=== PATIENT | male | born 1980 | race African-American/Black ===

== ENCOUNTER 2021-05-15 11:11 | Observation (INO) | payer MEDICAID, OTHER ==
[~2021-05-15] VITALS: Ht 185.4 cm; Wt 109.5 kg
[2021-05-15 11:56] LABS: BASO % 0.7 % (0.0-1.0); EOS # 0.2 10^3/uL (0.0-0.5); EOS % 2.9 % (0.0-3.0); HEMATOCRIT 36.8 % (42.0-52.0); HEMOGLOBIN 11.5 g/dl (13.5-17.5); LYMPH # 1.8 10^3/uL (1.5-5.0); LYMPH % 29.9 % (24.0-44.0); MEAN CORPUSCULAR HEMOGLOBIN 23.9 pg (27.0-33.0); MEAN CORPUSCULAR HGB CONC 31.3 g/dl (32.0-36.5); MEAN CORPUSCULAR VOLUME 76.3 fl (80.0-96.0); MONO # 0.5 10^3/uL (0.0-0.8); MONO % 8.7 % (2.0-8.0); NEUTROPHILS # 3.4 10^3/uL (1.5-8.5); NEUTROPHILS % 57.5 % (36.0-66.0); PLATELET COUNT, AUTOMATED 414 10^3/uL (150-450); RED BLOOD COUNT 4.82 10^6/uL (4.30-6.10); WHITE BLOOD COUNT 5.9 10^3/uL (4.0-10.0)
--- NOTE | 2021-05-15 13:32 | REP ---
INDICATION: CVA - Nursing interventions must not delay CT. COMPARISON: None. TECHNIQUE: 4.5 mm contiguous transaxial sections were obtained from the skull base to the cerebral convexities with thin cuts through the posterior fossa without the administration of intravenous contrast. FINDINGS: The ventricles and sulci are consistent with the patient's age. There are no extra-axial fluid collections. There is no mass effect. The deep cerebral white matter is consistent with the patient's age. The orbital and petrous structures, cerebellopontine angles, and posterior fossa are unremarkable. The sella turcica, cavernous, and paracavernous structures are essentially unremarkable. The visualized portions of the paranasal sinuses and mastoid air cells are clear. Images of the skull base show no gross abnormality. IMPRESSION: Essentially unremarkable CT examination of the brain. <Electronically signed by Reji Galindo > 05/15/21 [id number]
--- NOTE | 2021-05-15 13:33 | REP ---
INDICATION: CVA. COMPARISON: None. FINDINGS: The technique utilized in obtaining the radiograph has magnified the cardiac silhouette and accentuated the interstitial markings. The superior mediastinal structures are midline. The cardiac silhouette is unremarkable in size, shape, and position. The diaphragmatic surfaces of the lungs are regular, and the costophrenic angles are clear. The pulmonary chanel are clear. The imaged osseous structures are intact. IMPRESSION: There is no acute cardiopulmonary disease. <Electronically signed by Reji Galindo > 05/15/21 [id number]
[2021-05-15 13:39] LABS: CK-MB VALUE MASS 6.2 NG/ML (<3.6); CPK CREATINE PHOSPHOKINASE 888 U/L (39-308); TROPONIN I < 0.02 NG/ML (< 0.10)
[2021-05-15 14:28] LABS: INR 0.98; PROTHROMBIN TIME 13.2 SECONDS (12.5-14.3)
[2021-05-15 14:29] LABS: PARTIAL THROMBOPLASTIN TIME 29.3 SECONDS (24.2-38.5)
--- NOTE | 2021-05-15 14:46 | ECGEPIP ---
[facility] - ED Test Date: 2021-05-15 Pat Name: TRENT PAUL Department: Room: - Gender: Male Alcohol And Drug Counselor: : 1980 Requested By: RAFITA Knight Order Number: [id number] Reading MD: Maribel Wen Measurements Intervals [place] Rate: 64 P: 49 IN: 176 QRS: 10 QRSD: 96 T: 37 QT: 444 QTc: 458 Interpretive Statements Normal sinus rhythm right ventricular conduction delay no prior Electronically Signed on 05-15-2021 14:46:13 EDT by Maribel Wen
[2021-05-15 15:19] LABS: RSV AMPLIFICATION NEGATIVE (NEGATIVE)
[2021-05-15] MEDS ORDERED: ACETAMINOPHEN TAB 650MG DOSE (2X325MG) PO PRN (15:25)
--- NOTE | 2021-05-15 15:25 | HPEPDOC ---
[facility] Medical History & Physical Date of Admission May 15, 2021 Date of Service: May 15, 2021 History and Physical CHIEF COMPLAINT: Finger tingling HISTORY OF PRESENT ILLNESS: 41M no past medical history comes to the emergency department because he woke up last night feeling tingling in his fourth and fifth digits of his right hand which lasted for several hours and then resolved spontaneously. Patient believes he slept on his right arm and a strange angle. Hospitalist service was contacted by Dr. Erickson in the emergency department requested admission to rule out stroke vs TIA in this previously healthy 41-year-old male who presented with transient right hand tingling in the distribution of the ulnar nerve. I asked Dr. Erickson to discuss with neurology who suggested a brain MRI to definitively rule out stroke and if negative no further workup is necessary. Patient will be admitted for observation to obtain brain MRI. Patient is feeling well. No symptoms denies any chest pain, shortness of breath, weakness in any extremity or numbness. Patient describes the tingling to be in the exact distribution of the ulnar nerve on the right hand. Of note patient endorses that before going to bed last night he felt very hot in his apartment because of lack of AC or fan and had to go sleep at a friends house because he felt he was having a heat stroke. PAST MEDICAL/SURGICAL HISTORY: Denies previous medical problems Endorses history of left ankle surgery SOCIAL HISTORY: Endorses drinking alcohol 4 tall beers daily Endorses smoking half a pack of tobacco daily for the past 20 years Denies illicit drug use other than cannabis use FAMILY HISTORY: Denies knowing any medical problems in his immediate family including strokes or heart attacks. ALLERGIES: Please see below. REVIEW OF SYSTEMS: 10 point review of systems complete all negative otherwise stated in HPI HOME MEDICATIONS: Please see below. PHYSICAL EXAMINATION: Constitutional: Awake and alert, in no apparent distress ENT: Sclera are clear. Mucosa is moist. Respiratory: Lungs CTA bilaterally. No respiratory distress. No use of access ory muscles. Cardiovascular: RRR S1 and S2 are normal, no murmur Gastrointestinal: Abdomen is soft, non distended, non tender, BS present. Musculoskeletal: No lower extremity edema. mental status: The patient is awake, alert, oriented to name, location, and date. Cranial nerves: Pupils are equal, round, and reactive to light. Extraocular muscles intact. Visual chanel full bilaterally. Smile is symmetrical. Tongue is midline. Intact sensation on both sides of face. Motor: At least 4+/5 in both upper and lower extremities without any drifting. Sensory: Intact to sensation bilaterally. Reflexes: Symmetrical, non-hyperreflexic. Not pathological. Coordination: Ezffbs-yy-yywa grossly intact. LABORATORY DATA: See below. IMAGING: See chart MICROBIOLOGY: Please see below. ASSESSMENT/PLAN # Right arm tingling: Likely triggered by ulnar nerve compression while sleeping resolved spontaneously after waking up. Per recommendations from neurology will obtain MRI to rule out stroke. If negative no further workup and can follow up with his PCP. # Elevated blood pressure without diagnosis of hypertension: started lisinopril. Needs to follow up with PCP. Lifestyle modifications. # Elevated CPK: possible heat stroke from last evening. Trend CPK. Trend trops. IVFs. # Alcohol abuse: drinks daily. CIWA protocol. Thiamine, MVN, folate. Ativan PRN. # DVT prophylaxis: Lovenox A Yousef Hospitalist Vital Signs Vital Signs Date Time Temp Pulse Resp B/P (MAP) Pulse Ox O2 Delivery O2 Flow Rate FiO2 05/15/21 11:59 05/15/21 11:11 97.2 100 24 100 Room Air Laboratory Data Labs 24H Laboratory Tests 2 05/15/21 11:35: Immature Granulocyte % (Auto) 0.3, Neutrophils (%) (Auto) 57.5, Lymphocytes (%) (Auto) 29.9, Monocytes (%) (Auto) 8.7H, Eosinophils (%) (Auto) 2.9, Basophils (%) (Auto) 0.7, Neutrophils # (Auto) 3.4, Lymphocytes # (Auto) 1.8, Monocytes # (Auto) 0.5, Eosinophils # (Auto) 0.2, Basophils # (Auto) 0.0, Nucleated Red Blood Cells % (auto) 0.0, Total Creatine Kinase 888H, Creatine Kinase MB 6.2H, Creatine Kinase MB Relative Index 0.70, Troponin I < 0.02 05/15/21 11:52: POC Glucose (Misc Panel) 124H, POC Sodium (Misc Panel) 141, POC Potassium (Misc Panel) 3.9, POC Chloride (Misc Panel) 104, POC Total CO2 (Misc Panel) 24.0, POC Blood Urea Nitrogen (Misc Panel 17, POC Ionized Calcium (Misc Panel) 5.0, POC Creatinine (Misc Panel) 1.2, POC Hematocrit (Misc Panel) 39.0 05/15/21 14:05: Prothrombin Time 13.2, Prothromb Time International Ratio 0.98, Activated Partial Thromboplast Time 29.3 CBC/BMP Laboratory Tests 05/15/21 11:35 Home Medications No Active Prescriptions or Reported Meds Allergies Coded Allergies: No Known Allergies (Unverified , 05/15/21) A-FIB/CHADSVASC A-FIB History Current/History of A-Fib/PAF?: No JIMMIESECHING Guzman MD May 15, 2021 15:25
[2021-05-15] MEDS ORDERED: LORazepam 2 MG TAB PO PRN (16:40)
[2021-05-15] MEDS: THIAMINE 100 MG TAB PO SCH (17:00)
[2021-05-15 17:27] VITALS: BP 165/94
[2021-05-15 17:28] VITALS: BP 165/94
[2021-05-15] MEDS: FOLIC ACID 1 MG TAB PO SCH (18:04)
[2021-05-15] MEDS: MULTIVITAMINS/MINERALS THERAP 1 TAB PO SCH (18:04)
[2021-05-15] MEDS: NS 1,000 ML IV SCH (18:26)
--- NOTE | 2021-05-15 19:31 | REPVR ---
PROCEDURE INFORMATION: Exam: MRA Head Without Contrast; Arteriography Exam date and time: 05/15/2021 4:39 PM Age: 41 years old Clinical indication: Headache and numbness and visual disturbance and weakness; Other visual defect; Patient HX: PT states he became hot due to the outside temperature and then had hallucinations and RT arm numbness and tingling sensation. PT states he still has a headache and arm symptoms have resolved; Additional info: Rule out stroke TECHNIQUE: Imaging protocol: Magnetic resonance angiography head without contrast. Exam focused on the arteries. COMPARISON: CT Head without contrast 05/15/2021 1:16 PM FINDINGS: ANTERIOR CIRCULATION: Right internal carotid artery: Intracranial segment is patent with no significant stenosis. No aneurysm. Right middle cerebral artery: No occlusion or significant stenosis. No aneurysm. Right anterior cerebral artery: No occlusion or significant stenosis. No aneurysm. Left internal carotid artery: Intracranial segment is patent with no significant stenosis. No aneurysm. Left middle cerebral artery: No occlusion or significant stenosis. No aneurysm. Left anterior cerebral artery: No occlusion or significant stenosis. No aneurysm. POSTERIOR CIRCULATION: Right vertebral artery: No occlusion or significant stenosis. No aneurysm. Left vertebral artery: No occlusion or significant stenosis. No aneurysm. Basilar artery: No occlusion or significant stenosis. No aneurysm. Right posterior cerebral artery: No occlusion or significant stenosis. No aneurysm. Left posterior cerebral artery: No occlusion or significant stenosis. No aneurysm. IMPRESSION: No significant arterial stenosis or occlusion on this MRA head. Electronically signed by: Maico Purcell On 05/15/2021 19:31:10 PM
--- NOTE | 2021-05-15 21:13 | REPVR ---
PROCEDURE INFORMATION: Exam: US Duplex Right Upper Extremity Veins, Limited Exam date and time: 05/15/2021 8:44 PM Age: 41 years old Clinical indication: Pain; Arm, upper; Right; Additional info: Right arm numbness and tingling, pain and edema TECHNIQUE: Imaging protocol: Real-time Duplex ultrasound of the Right Upper Extremity with 2-D zarate scale, color Doppler flow and spectral waveform analysis with image documentation. Limited exam focused on the right upper extremity veins. COMPARISON: No relevant prior studies available. FINDINGS: Right deep veins: Axillary and brachial veins are patent throughout without thrombus. Normal Doppler waveforms. Normal compressibility and/or augmentation response. Visualized internal jugular and subclavian veins are patent. Right superficial veins: Visualized cephalic and basilic veins are patent without thrombus. Soft tissues: Unremarkable. IMPRESSION: No evidence of deep vein thrombosis of the right upper extremity, as visualized. Electronically signed by: Maico Purcell On 05/15/2021 21:13:13 PM
[2021-05-15 22:00] VITALS: BP 156/93
[2021-05-16] MEDS: NS 1,000 ML IV SCH (01:03)
[2021-05-16 06:00] VITALS: BP 125/66
[2021-05-16 07:55] LABS: HEMATOCRIT 39.2 % (42.0-52.0); MEAN CORPUSCULAR HEMOGLOBIN 23.7 pg (27.0-33.0); MEAN CORPUSCULAR HGB CONC 30.6 g/dl (32.0-36.5); MEAN CORPUSCULAR VOLUME 77.3 fl (80.0-96.0); PLATELET COUNT, AUTOMATED 446 10^3/uL (150-450); RED BLOOD COUNT 5.07 10^6/uL (4.30-6.10); WHITE BLOOD COUNT 5.2 10^3/uL (4.0-10.0)
[2021-05-16 08:07] VITALS: BP 154/92
[2021-05-16] MEDS: MULTIVITAMINS/MINERALS THERAP 1 TAB PO SCH (08:07)
[2021-05-16] MEDS: THIAMINE 100 MG TAB PO SCH (08:07)
[2021-05-16] MEDS: FOLIC ACID 1 MG TAB PO SCH (08:07)
[2021-05-16 08:15] LABS: BLOOD UREA NITROGEN 13 MG/DL (7-18); CALCIUM LEVEL 8.7 MG/DL (8.5-10.1); CARBON DIOXIDE LEVEL 29 MEQ/L (21-32); CHLORIDE LEVEL 108 MEQ/L (98-107); CPK CREATINE PHOSPHOKINASE 488 U/L (39-308); CREATININE FOR GFR 0.94 MG/DL (0.70-1.30); GLOMERULAR FILTRATION RATE > 60.0 (>60); GLUCOSE, FASTING 118 MG/DL (70-100); POTASSIUM SERUM 3.8 MEQ/L (3.5-5.1); SODIUM LEVEL 138 MEQ/L (136-145)
[2021-05-16] MEDS ORDERED: ENOXAPARIN 40MG/0.4ML SYRINGE (J1650 PER 10MG) SC SCH (09:00)
--- NOTE | 2021-05-16 11:01 | IPNPDOC ---
Text Note Date of Service The patient was seen on 05/16/21. NOTE Subjective: Patient seen and examined this morning at bedside. Tells me all his symptoms completely resolved he has no more tingling in his right hand ulnar fingertips patient. Wants to go home. Note given for work to return to work. No acute overnight events reported to me. MRI negative for stroke discussed with patient. Denies any chest pain or shortness of breath. Denies fever or chills. nurse called me last night she was concerned that he recently received Covid vaccine and she felt his right upper extremity was slightly more swollen than the left upper extremity and as avoiding getting ultrasound. I had not noticed any swelling on my exam but agreed to an abundance of caution in case he developed swelling after left. His ultrasound was negative. Examined his ex tremities this morning and there was no increased swelling on the right side. Objective: Constitutional: Awake and alert, in no apparent distress ENT: Sclera are clear. Mucosa is moist. Respiratory: Lungs CTA bilaterally. No respiratory distress. No use of accessory muscles. Cardiovascular: RRR S1 and S2 are normal, no murmur Gastrointestinal: Abdomen is soft, non distended, non tender, BS present. Musculoskeletal: No lower extremity edema. mental status: The patient is awake, alert, oriented to name, location, and date. Cranial nerves: Pupils are equal, round, and reactive to light. Extraocular muscles intact. Visual chanel full bilaterally. Smile is symmetrical. Tongue is midline. Intact sensation on both sides of face. Motor: At least 4+/5 in both upper and lower extremities without any drifting. Sensory: Intact to sensation bilaterally. Reflexes: Symmetrical, non-hyperreflexic. Not pathological. Coordination: Wadrur-tp-ilsu grossly intact. Assessment/plan: # Right arm tingling: Resolved, has not reoccurred. Likely triggered by ulnar nerve compression while sleeping resolved spontaneously after waking up. Per recommendations from neurology will obtain MRI which came back as negative for stroke. can follow up with his PCP. # Elevated blood pressure without diagnosis of hypertension: started lisinopril but his BP normalized in the morning to 125/66, no need for medications on discharge. Could be triggered by stress or white coat htn. Needs to follow up w ith PCP. Lifestyle modifications. # Elevated CPK: possible heat stroke from last evening. Trend CPK downtrended 488 on discharge. Trend trops negative 3x. IVFs. # Alcohol abuse: drinks daily. CIWA protocol. Thiamine, MVN, folate. Ativan PRN. # DVT prophylaxis: Lovenox A Molly Hospitalist VSDavid, I+O VSDavid, I+O Laboratory Tests 05/15/21 11:35 05/16/21 07:30 Vital Signs Date Time Temp Pulse Resp B/P (MAP) Pulse Ox O2 Delivery O2 Flow Rate FiO2 05/16/21 08:07 154/92 05/16/21 06:00 76 05/16/21 06:00 97.7 20 100 Room Air I&O- Last 24 Hours up to 6 AM 05/16/21 06:00 Intake Total 1485 ml Balance 1485 ml CHING ADKINS MD May 16, 2021 11:01
== END 2021-05-16 12:20 | disposition home or self-care (01) ==
LOC: M ED 11:11 → M ED INP 11:12 → ENRESERV 15:46 → M MSPAV 17:21
PROVIDERS: ADMIT Family Medicine; ATTEND Family Medicine
DX: R20.2 Paresthesia of skin (principal); R03.0 Elevated blood-pressure reading, without diagnosis of hypertension; R74.8 Abnormal levels of other serum enzymes; R51.9 Headache, unspecified; M79.641 Pain in right hand; F10.10 Alcohol abuse, uncomplicated; F17.210 Nicotine dependence, cigarettes, uncomplicated

== ENCOUNTER 2021-07-04 10:49 | Emergency (ER) | payer OTHER ==
[~2021-07-04] VITALS: Ht 185.4 cm; Wt 106.3 kg
[2021-07-04 10:49] VITALS: BP 148/76
--- NOTE | 2021-07-04 13:35 | REP ---
INDICATION: mass under left mandible ? abscess. COMPARISON: None. TECHNIQUE: Multiple ultrasonographic images inferior to the mandible on the left with financial foundations representative images inferior to the mandible on the right, including color Doppler ultrasound. FINDINGS: There is a palpable mass inferior to the mandible on the left. Ultrasonography of this mass identifies a subcutaneous ovoid, sharply circumscribed solid mass, nonpainful, measuring 3.4 x 2.9 x 1.3 cm. Diversional Therapist images inferior to the mandible on the right identify a smaller similar appearing solid nodule measuring 0.3 x 0.4 x 0.4 cm. Color Doppler assessment of both lesions identifies no internal vascular flow. IMPRESSION: There is a non tender sharply circumscribed solid mass inferior to the mandible on the left corresponding the palpable lump with no visible internal flow by color Doppler assessment. There is a similar appearing but much smaller mass inferior to the mandible on the right. These are nonspecific, some diagnostic considerations are epidermoid cyst and sebaceous cyst. I would recommend MRI for follow-up imaging. <Electronically signed by Reggie Rawls > 07/04/21 0911
== END 2021-07-04 13:57 | disposition left against medical advice (07) ==
LOC: M ED 10:49
DX: R22.0 Localized swelling, mass and lump, head (principal); I10 Essential (primary) hypertension; J45.909 Unspecified asthma, uncomplicated; F17.210 Nicotine dependence, cigarettes, uncomplicated; F12.20 Cannabis dependence, uncomplicated

== ENCOUNTER 2021-07-10 10:56 | Emergency (ER) | payer OTHER ==
[~2021-07-10] VITALS: Ht 185.4 cm; Wt 108.7 kg
[2021-07-10] MEDS ORDERED: IBUP-1022 PO (12:53)
[2021-07-10] MEDS ORDERED: CYCL5TAB PO (12:53)
[2021-07-10 13:17] VITALS: BP 158/80
== END 2021-07-10 13:21 | disposition home or self-care (01) ==
LOC: M ED 10:56
DX: G89.29 Other chronic pain (principal); M54.5 Low back pain; D37.032 Neoplasm of uncertain behavior of the submandibular salivary glands; I10 Essential (primary) hypertension; J45.909 Unspecified asthma, uncomplicated; F17.210 Nicotine dependence, cigarettes, uncomplicated

== ENCOUNTER 2021-08-20 09:08 | Emergency (ER) | payer MEDICAID, OTHER ==
[~2021-08-20] VITALS: Ht 185.4 cm; Wt 103.6 kg
[~2021-08-20 09:08] MED LIST: CYCL5TAB PO; IBUP-1022 PO
[2021-08-20 10:00] VITALS: BP 146/73
--- NOTE | 2021-08-20 11:09 | REP ---
INDICATION: cough. COMPARISON: Portable chest, 05/15/2021. TECHNIQUE: Upright PA and lateral chest images were obtained. FINDINGS: There is a benign calcified granuloma in the lower lung zone on the right. The lungs are otherwise clear. There is no lobar consolidation or pleural effusion. The heart borders mediastinum and pulmonary vascular pattern normal. The upper abdominal bowel gas pattern is normal. There are no bony abnormalities of chest. IMPRESSION: No evidence of acute cardiopulmonary pathology. <Electronically signed by Maico Wang > 08/20/21 2552
--- NOTE | 2021-08-21 08:18 | ECGEPIP ---
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
== END 2021-08-20 11:39 | disposition home or self-care (01) ==
LOC: M ED 09:08 → EDBD 09:08 → M ED 11:39
DX: J06.9 Acute upper respiratory infection, unspecified (principal); J45.909 Unspecified asthma, uncomplicated

== ENCOUNTER 2021-09-27 11:29 | Emergency (ER) | payer OTHER ==
[~2021-09-27] VITALS: Ht 188 cm; Wt 110.4 kg
[2021-09-27 11:30] VITALS: BP 143/74
--- OUTSIDE RECORDS SUMMARY | 2021-09-27 11:36 | CCD ---
Author Author [facility] Organization [facility] Address Unknown Phone Unavailable Care Team Providers Care Blending Tank Helper Name Role Phone HUA CLAYTON MD Unavailable Unavailable HUA CLAYTON MD Unavailable Unavailable HUA CLAYTON MD Unavailable Unavailable HUA CLAYTON MD Unavailable Unavailable HUA CLAYTON MD Unavailable Unavailable HUA CLAYTON MD Unavailable Unavailable HUA CLAYTON MD Unavailable Unavailable Re-disclosure Warning The records that you are about to access may contain information from federally-assisted alcohol or drug abuse programs. If such information is present, then the following federally mandated warning applies: This information has been disclosed to you from records protected by federal confidentiality rules (42 CFR part 2). The federal rules prohibit you from making any further disclosure of this information unless further disclosure is expressly permitted by the written consent of the person to whom it pertains or as otherwise permitted by 42 CFR part 2. A general authorization for the release of medical or other information is NOT sufficient for this purpose. The Federal rules restrict any use of the information to criminally investigate or prosecute any alcohol or drug abuse patient.The records that you are about to access may contain highly sensitive health information, the redisclosure of which is protected by Article 27-F of the [facility] Public Health law. If you continue you may have access to information: Regarding HIV / AIDS; Provided by facilities licensed or operated by the [facility] Office of Mental Health; or Provided by the [facility] Office for People With Developmental Disabilities. If such information is present, then the following [facility] mandated warning applies: This information has been disclosed to you from confidential records which are protected by state law. State law prohibits you from making any further disclosure of this information without the specific written consent of the person to whom it pertains, or as otherwise permitted by law. Any unauthorized further disclosure in violation of state law may result in a fine or intermediate sentence or both. A general authorization for the release of medical or other information is NOT sufficient authorization for further disc losure. Encounters Encounter Providers Location Date Indications Data Source(s ) Emergency Attender: HUA CLYATON MD [facility] 2016 09:31:00 AM EDT - 08/14/2017 11:05:00 AM EDT [facility] Medications No Information Insurance Providers Payer name Policy type / Coverage type Policy ID Covered alliance party ID Covered alliance party's relationship to [place] Policy [place] Plan Information [facility] MCDO [id number] SP [id number] [facility] MEDICAID [id number] SP [id number] J [facility] [employer] MCDO [id number] SP [id number] [facility] MCDO [id number] SP [id number] [facility] MEDICAID [id number] SP [id number] [facility] [employer] MCDO [id number] SP [id number] MEDICAID [id number] S [id number] SELF-PAY [id number] S [id number] SELF-PAY UNAVAILABLE S UNAVAILA BLE Problems, Conditions, and Diagnoses No Information Surgeries/Procedures No Information Results ID Date Data Source [id number] 08/20/2021 09:17:00 AM EDT [facility] Name Value Range Interpretation Code Description Data Mallory rce(s) Supporting Document(s) SARS COVID ANTIGEN NEGATIVE [facility] This lab was ordered by [facility] a nd reported by [facility]. ID Date Data Source [id number] 05/15/2021 02:05:00 PM EDT [facility] Name Value Range Interpretation Code Description Data Mallory rce(s) Supporting Document(s) SARS coronavirus 2 RNA [Presence] in Res piratory specimen by SUNITHA with probe detection NEGATIVE [facility] This lab was ordered by [facility] a nd reported by [facility]. Procedure Social History No Information
--- OUTSIDE RECORDS SUMMARY | 2021-09-27 13:19 | CCD ---
Author Author [facility] Organization [facility] Address Unknown Phone Unavailable Care Team Providers Care Director Reactor Projects Name Role Phone HUA CLAYTON MD Unavailable [...] is protected by Article 27-F of the [facility] Public Health law. If you continue you may have access to information: Regarding HIV / AIDS; Provided by facilities licensed or operated by the [facility] Office of Mental Health; or Provided by the [facility] Office for People With Developmental Disabilities. If such information is present, then the following [facility] mandated warning applies: This information has been [...] law may result in a fine or penitentiary sentence or both. A general authorization for the release of medical or other information is NOT sufficient authorization for further disc losure. Encounters Encounter Providers Location Date Indications Data Source(s ) Emergency Attender: HUA CLAYTON MD [facility] 2016 09:31:00 AM EDT - 08/14/2017 11:05:00 AM EDT [facility] Medications No Information Insurance Providers Payer name Policy type / Coverage type Policy ID Covered alliance party ID Covered alliance party's relationship to [place] Policy [place] Plan Information [facility] COMMUNITY PLAN MCDO [id number] SP [id number] [facility] MEDICAID [id number] SP [id number] J [facility] COMMUNITY PLAN MCDO [id number] SP [id number] [facility] COMMUN[facility] PLAN MCDHMO [id number] SP [id number] [facility] MEDICAID [id number] SP [id number] [facility] COMMUNITY PLAN MCDO [id number] SP [id number] MEDICAID [id number] S [id number] SELF-PAY [id number] S [id number] SELF-PAY UNAVAILABLE S UNAVAILA BLE Problems, Conditions, and Diagnoses No Information Surgeries/Procedures No Information Results ID Date Data Source [id number] 08/20/2021 09:17:00 AM EDT [facility] Name Value Range Interpretation Code Description Data Mallory rce(s) Supporting Document(s) SARS COVID ANTIGEN NEGATIVE [facility] This lab was ordered by [facility] a nd reported by [facility]. ID Date Data Source [id number] 05/15/2021 02:05:00 PM EDT [facility] Name Value Range Interpretation Code Description Data Mallory rce(s) Supporting Document(s) SARS coronavirus 2 RNA [Presence] in Res piratory specimen by SUNITHA with probe detection NEGATIVE [facility] This lab was ordered by [facility] a nd reported by [facility]. Procedure Social History No Information
== END 2021-09-27 15:19 | disposition left against medical advice (07) ==
LOC: M ED 11:29
DX: R21 Rash and other nonspecific skin eruption (principal); F17.210 Nicotine dependence, cigarettes, uncomplicated; F12.20 Cannabis dependence, uncomplicated

== ENCOUNTER 2021-09-27 16:56 | Inpatient (IN) | payer OTHER ==
[~2021-09-27] VITALS: Ht 185.4 cm; Wt 113.7 kg
--- OUTSIDE RECORDS SUMMARY | 2021-09-27 17:01 | CCD ---
Author Author [facility] Organization [facility] Address Unknown Phone Unavailable Care Team Providers Care Locksmith Helper Name Role Phone HUA CLAYTON MD [...] is protected by Article 27-F of the [facility] Public Health law. If you continue you may have access to information: Regarding HIV / AIDS; Provided by facilities licensed or operated by the [facility] Office of Mental Health; or Provided by the [facility] Office for People With Developmental Disabilities. If such information is present, then the following [facility] mandated warning applies: This information has been [...] law may result in a fine or longterm sentence or both. A general authorization for the release of medical or other information is NOT sufficient authorization for further disc losure. Encounters Encounter Providers Location Date Indications Data Source(s ) Emergency Attender: HUA CLAYTON MD CPSCAORT-ED 2016 09:31:00 AM EDT - 08/14/2017 11:05:00 AM EDT [facility] Medications No Information Insurance Providers Payer name Policy type / Coverage type Policy ID Covered green party ID Covered green party's relationship to [place] Policy [place] Plan Information [facility] COMMUNITY PLAN MCDO [id number] SP [id number] [facility] MEDICAID [id number] SP [id number] J [facility] COMMUNITY PLAN MCDO [id number] SP [id number] [facility] COMMUNITY PLAN MCDHMO [id number] SP [id number] [facility] MEDICAID [id number] SP [id number] 10 [facility] COMMUNITY PLAN MCDO [id number] SP [id number] MEDICAID [id number] S [id number] SELF-PAY [id number] S [id number] SELF-PAY UNAVAILABLE S UNAVAILA BLE Problems, Conditions, and Diagnoses No Information Surgeries/Procedures No Information Results ID Date Data Source [id number] 08/20/2021 09:17:00 AM EDT [facility] Name Value Range Interpretation Code Description Data Mallory rce(s) Supporting Document(s) SARS COVID ANTIGEN NEGATIVE [facility] This lab was ordered by [facility] a nd reported by [facility]. ID Date Data Source [id number] 05/15/2021 02:05:00 PM EDT [facility] Name Value Range Interpretation Code Description Data Mallory rce(s) Supporting Document(s) SARS coronavirus 2 RNA [Presence] in Res piratory specimen by SUNITHA with probe detection NEGATIVE [facility] This lab was ordered by [facility] a nd reported by [facility]. Procedure Social History No Information
[2021-09-27 21:38] LABS: BASO # 0.1 10^3/uL (0.0-0.2); BASO % 0.5 % (0.0-1.0); EOS # 0.2 10^3/uL (0.0-0.5); EOS % 1.8 % (0.0-3.0); HEMATOCRIT 35.7 % (42.0-52.0); LYMPH # 1.8 10^3/uL (1.5-5.0); LYMPH % 17.5 % (24.0-44.0); MEAN CORPUSCULAR HEMOGLOBIN 23.1 pg (27.0-33.0); MEAN CORPUSCULAR HGB CONC 30.8 g/dl (32.0-36.5); MEAN CORPUSCULAR VOLUME 74.8 fl (80.0-96.0); MONO # 0.9 10^3/uL (0.0-0.8); MONO % 8.8 % (2.0-8.0); NEUTROPHILS # 7.4 10^3/uL (1.5-8.5); NEUTROPHILS % 70.9 % (36.0-66.0); PLATELET COUNT, AUTOMATED 439 10^3/uL (150-450); RED BLOOD COUNT 4.77 10^6/uL (4.30-6.10); WHITE BLOOD COUNT 10.4 10^3/uL (4.0-10.0)
[2021-09-27] MEDS ORDERED: ISOVUE-370 76% 100ML VIAL As Ordered ONE (21:39)
--- OUTSIDE RECORDS SUMMARY | 2021-09-27 22:35 | CCD ---
Author Author [facility] Organization [facility] Address Unknown Phone Unavailable Care Team Providers Care Call Center Agent Name Role Phone HUA CLAYTON MD Unavailable [...] is protected by Article 27-F of the [place] Public Health law. If you continue you may have access to information: Regarding HIV / AIDS; Provided by facilities licensed or operated by the [facility] Office of Mental Health; or Provided by the [facility] Office for People With Developmental Disabilities. If such information is present, then the following [facility] mandated warning applies: This information has [...] law may result in a fine or nursing home sentence or both. A general authorization for the release of medical or other information is NOT sufficient authorization for further disc losure. Encounters Encounter Providers Location Date Indications Data Source(s ) Emergency Attender: HUA CLAYTON MD [facility]PSCAORT-ED 2016 09:31:00 AM EDT - 08/14/2017 11:05:00 AM EDT [facility] Medications No Information Insurance Providers Payer name Policy type / Coverage type Policy ID Covered alliance party ID Covered alliance party's relationship to [place] Policy [place] Plan Information [facility] COMMUNITY PLAN MCDO [id number] SP [id number] [facility] MEDICAID [id number] SP [id number] J [facility] COMMUNITY PLAN MCDO [id number] SP [id number] [facility] COMMUNITY PLAN MCDO [id number] SP [id number] [facility] MEDICAID [id number] SP [id number] [facility] COMMUNITY PLAN MCDO [id number] SP [id number] MEDICAID [id number] S [id number] SELF-PAY [id number] S [id number] SELF-PAY UNAVAILABLE S UNAVAILA BLE Problems, Conditions, and Diagnoses No Information Surgeries/Procedures No Information Results ID Date Data Source [id number] 08/20/2021 09:17:00 AM EDT [facility] Name Value Range Interpretation Code Description Data Mallory rce(s) Supporting Document(s) SARS COVID ANTIGEN NEGATIVE [facility] This lab was ordered by [facility] a nd reported by [facility]. ID Date Data Source [id number] 05/15/2021 02:05:00 PM EDT [facility] Name Value Range Interpretation Code Description Data Mallory rce(s) Supporting Document(s) SARS coronavirus 2 RNA [Presence] in Res piratory specimen by SUNITHA with probe detection NEGATIVE [facility] This lab was ordered by [facility] a nd reported by [facility]. Procedure Social History No Information
[2021-09-27] MEDS ORDERED: AMPICILLIN SOD/SULBACTAM SOD 3 GM in D5W MINI-BAG PLUS 100 ML IV ONE (23:00)
--- NOTE | 2021-09-27 23:05 | REPVR ---
PROCEDURE INFORMATION: Exam: CT Neck With Contrast Exam date and time: 09/27/2021 10:18 PM Age: 41 years old Clinical indication: Mass, lump, or swelling in neck; Right; Additional info: Fluctuant mass at the level of the ear (right side) TECHNIQUE: Imaging protocol: Computed tomography images of the neck with contrast. Radiation optimization: All CT scans at this facility use at least one of these dose optimization techniques: automated exposure control; mA and/or kV adjustment per patient size (includes targeted exams where dose is matched to clinical indication); or iterative reconstruction. Contrast material: ISOVUE 370; Contrast volume: 75 ml; Contrast route: INTRAVENOUS (IV); COMPARISON: 1. Thyroid, ST head+neck US 07/04/2021 12:[address] Head without contrast 05/15/2021 1:16:25 PM FINDINGS: Orbital cavity: The globes are intact and normal in appearance. Mastoid air cells: The mastoid air cells are well aerated. Auditory system: The middle ear spaces are clear. Paranasal sinuses: The imaged portions of the sinuses are well aerated. No air-fluid levels are noted in the sinuses. Nasal cavity: Unremarkable. Nasopharynx: Unremarkable. Oral Cavity: Unremarkable. Dental: There are dental caries involving the left upper 3rd molar. Oropharynx: Unremarkable. No enlargement of the palatine tonsils. No tonsillar or peritonsillar abscess. Hypopharynx: Unremarkable. Larynx: Unremarkable. No swelling of the epiglottis. No mass. Retropharyngeal space: Unremarkable. No retropharyngeal edema or fluid collection. Submandibular/Parotid glands: Unremarkable. Thyroid: There is a 1.5 cm heterogeneous nodule in the posterior aspect of the lower pole of the left lobe of the thyroid gland (image 64 of the axial series 201 and image 45 of the coronal series 202). Lymph nodes: No enlarged lymph nodes. Trachea: Normal as visualized. The lower trachea was not fully imaged. Lungs: The imaged lung apices are clear. The lungs were not fully imaged. Bones/joints: There is no fracture or dislocation. No suspicious osteolytic or osteoblastic lesion. There are no bony destructive changes. Vasculature: The carotid arteries and jugular veins are patent. Soft tissues: There is a 1.4 cm x 2.1 cm x 1.7 cm rim enhancing fluid collection in the subcutaneous tissues lateral to the right side of the jaw with surrounding soft tissue edema and overlying thickening of the skin (image 27 of the axial series 201 and image 30 of the coronal series 202). There are several smaller cystic lesions in the skin along both sides of the face measuring up to 8 mm with surrounding soft tissue edema (images 16, 23, and 26 of the axial series 201). There is a 2.5 cm x 3 cm x 2.5 cm oval-shaped cystic lesion in the subcutaneous tissues in the left submandibular region (image 45 of the axial series 201). IMPRESSION: 1. 1.4 cm x 2.1 cm x 1.7 cm rim enhancing fluid collection in the subcutaneous tissues lateral to the right side of the jaw with surrounding soft tissue edema and overlying thickening of the skin, which may represent an abscess with surrounding cellulitis. 2. Several smaller cystic lesions in the skin along both sides of the face measuring up to 8 mm with surrounding soft tissue edema, which may also represent abscesses. 3. 2.5 cm x 3 cm x 2.5 cm oval-shaped cystic lesion in the subcutaneous tissues in the left submandibular region. 4. 1.5 cm heterogeneous nodule in the posterior aspect of the lower pole of the left lobe of the thyroid gland. See management guidelines below. 5. Dental caries involving the left upper 3rd molar. COMMENTS: Consistent with the [place] [employer]'s Incidental Findings Committee white paper (J Am Krystal Radiol 2015): In patients aged 35 years and older with an incidental thyroid nodule equal to or greater than 1.[address], MRI or extrathyroidal US, further evaluation with dedicated thyroid US is recommended for patients with normal life expectancy and without comorbidities. For smaller nodules without suspicious features, no further evaluation or follow up is recommended. Electronically signed by: Dieudonne Bowen On 09/27/2021 23:05:15 PM
[2021-09-27] MEDS ORDERED: HOME MED LIST COMPLETE! XX SCH (23:20)
[2021-09-27] MEDS ORDERED: MOM 30ML SUSPENSION UDC PO PRN (23:25)
--- NOTE | 2021-09-27 23:27 | HPEPDOC ---
[facility] Medical History & Physical Date of Admission Sep 27, 2021 Date of Service: Sep 27, 2021 History and Physical CHIEF COMPLAINT: Facial swelling HISTORY OF PRESENT ILLNESS: 41-year-old male no past medical history is as to the emergency department because of a 2 day history of swelling around his right jaw associated with pain. He denies fevers or chills and denies nausea or vomiting. Denies tooth pain. He thought the right-sided swelling was just an ingrown hair but it has only gotten bigger over the past 2 days. He denies any trouble swallowing or speaking denies any difficulty breathing. Patient was also noted to have left submandibular swelling when questioned about the patient stays this has been ongoing for several months probably since late summer and it hasn't changed in size and does not bother him. In the ED neck CT was ordered and is pending PAST MEDICAL/SURGICAL HISTORY: Denies previous medical problems Endorses history of left ankle surgery SOCIAL HISTORY: Endorses drinking alcohol 4 tall beers daily Endorses smoking half a pack of tobacco daily for the past 20 years Denies illicit drug use other than cannabis use FAMILY HISTORY: Reviewed and none contributory to this admission ALLERGIES: Please see below. REVIEW OF SYSTEMS: 10 point review of systems complete all negative otherwise stated in HPI HOME MEDICATIONS: Please see below. PHYSICAL EXAMINATION: Constitutional: Awake and alert, in no apparent distress ENT: Sclera are clear. Mucosa is moist. Respiratory: Lungs CTA bilaterally. No respiratory distress. No use of accessory muscles. Will to speak in full sentences without becoming short of breath Cardiovascular: RRR S1 and S2 are normal Gastrointestinal: Abdomen is soft, non distended, non tender Musculoskeletal: No lower extremity edema. Neurologic: No focal neurological deficit. Mental Status: A&O x3, normal affect Skin: Right-sided facial mass postauricular on the jaw tender to palpation slight surrounding erythema with no purulent discharge approximately 3-4 cm in diameter. Also a left submandibular mobile mass nontender. LABORATORY DATA: See below. IMAGING: See chart MICROBIOLOGY: Please see below. ASSESSMENT/PLAN 41-year-old male presents with right-sided facial swelling which could represent an abscess and left submandibular cyst warranting admission for IV antibiotics and evaluation by plastic surgery for possible I&D. # rim enhancing fluid collection in the subcutaneous tissues lateral to the right side of the jaw - Could represent an abscess/surrounding cellulitis - started on IV Unasyn - Plastics Dr Matthew consulted form the the ED, to see patient in the AM for possible I&D - Pain control with Tylenol and IV morphine for severe pain # left submandibular region cyst: Fu recommendations with Dr Matthew. # Thyroid nodule: 1.5cm per radiology recommendations further evaluation with dedicated thyroid US is recommended which was ordered. # Elevated BP without diagnosis of HTN: could be related to pain. Pain control and if remains high, can start anti-hypertensives. # DVT prophylaxis: Heparin A [facility] Vital Signs Vital Signs Date Time Temp Pulse Resp B/P (MAP) Pulse Ox O2 Delivery O2 Flow Rate FiO2 09/27/21 21:00 97.9 79 16 146/78 (100) 99 Room Air Laboratory Data Labs 24H Laboratory Tests 2 09/27/21 21:28: Immature Granulocyte % (Auto) 0.5, Neutrophils (%) (Auto) 70.9H, Lymphocytes (%) (Auto) 17.5L, Monocytes (%) (Auto) 8.8H, Eosinophils (%) (Auto) 1.8, Basophils (%) (Auto) 0.5, Neutrophils # (Auto) 7.4, Lymphocytes # (Auto) 1.8, Monocytes # (Auto) 0.9H, Eosinophils # (Auto) 0.2, Basophils # (Auto) 0.1, Nucleated Red Blood Cells % (auto) 0.0, C-Reactive Protein, Quantitative 2.08H 09/27/21 21:30: POC Glucose (Misc Panel) 111H, POC Sodium (Misc Panel) 141, POC Potassium (Misc Panel) 3.5, POC Chloride (Misc Panel) 101, POC Total CO2 (Misc Panel) 26.0, POC Blood Urea Nitrogen (Misc Panel 15, POC Ionized Calcium (Misc Panel) 4.9, POC Creatinine (Misc Panel) 1.1, POC Hematocrit (Misc Panel) 37.0L CBC/BMP Laboratory Tests 09/27/21 21:28 Home Medications No Active Prescriptions or Reported Meds Allergies Coded Allergies: No Known Allergies (Unverified , 05/15/21) CHING ADKINS MD Sep 27, 2021 23:27
--- OUTSIDE RECORDS SUMMARY | 2021-09-27 23:31 | CCD ---
Author Author [facility] Organization [facility] Address Unknown Phone Unavailable Care Team Providers Care Laborer Heading Name Role Phone HUA CLAYTON MD Unavailable [...] is protected by Article 27-F of the [place] State Public Health law. If you continue you may have access to information: Regarding HIV / AIDS; Provided by facilities licensed or operated by the [facility] Office of Mental Health; or Provided by the [facility] Office for People With Developmental Disabilities. If such information is present, then the following [facility] mandated warning applies: This information has been [...] law may result in a fine or care home sentence or both. A general authorization for the release of medical or other information is NOT sufficient authorization for further disc losure. Encounters Encounter Providers Location Date Indications Data Source(s ) Emergency Attender: HUA CLAYTON MD CPSCAORT-ED 2016 09:31:00 AM EDT - 08/14/2017 11:05:00 AM EDT [facility] Medications No Information Insurance Providers Payer name Policy type / Coverage type Policy ID Covered constitution party ID Covered constitution party's relationship to [place] Policy [place] Plan Information [facility] COMMUNITY PLAN MCDO [id number] SP [id number] [facility] MEDICAID [id number] SP [id number] J [facility] COMMUNITY PLAN MCDO [id number] SP [id number] [facility] COMMUNITY PLAN MCDO [id number] SP [id number] [facility] MEDICAID [id number] SP [id number] [facility] COMMUNITY PLAN MCDO [id number] SP [id number] MEDICAID [id number] S [id number] SELF-PAY [id number] S [id number] SELF-PAY UNAVAILABLE S UNAVAILA BLE Problems, Conditions, and Diagnoses No Information Surgeries/Procedures No Information Results ID Date Data Source [id number] 08/20/2021 09:17:00 AM EDT [facility] Name Value Range Interpretation Code Description Data Mallory rce(s) Supporting Document(s) SARS COVID ANTIGEN NEGATIVE [facility] This lab was ordered by [facility] a nd reported by [facility]. ID Date Data Source [id number] 05/15/2021 02:05:00 PM EDT [facility] Name Value Range Interpretation Code Description Data Mallory rce(s) Supporting Document(s) SARS coronavirus 2 RNA [Presence] in Res piratory specimen by SUNITHA with probe detection NEGATIVE [facility] This lab was ordered by [facility] a nd reported by [facility]. Procedure Social History No Information
[2021-09-28 00:49] LABS: RSV AMPLIFICATION NEGATIVE (NEGATIVE)
[2021-09-28 02:00] VITALS: BP 144/88
[2021-09-28] MEDS: ACETAMINOPHEN TAB 650MG DOSE (2X325MG) PO PRN ×2 (03:45→20:21)
[2021-09-28 06:00] VITALS: BP 144/87
[2021-09-28] MEDS: HEPARIN SOD (PORCINE) 5000UNITS/ML 1ML VIAL/SYRINGE SC SCH ×2 (06:25→13:03)
[2021-09-28] MEDS: AMPICILLIN SOD/SULBACTAM SOD 3 GM in D5W MINI-BAG PLUS 100 ML IV SCH ×2 (06:25→13:03)
[2021-09-28 06:31] LABS: HEMATOCRIT 35.6 % (42.0-52.0); HEMOGLOBIN 10.9 g/dl (13.5-17.5); MEAN CORPUSCULAR HEMOGLOBIN 22.7 pg (27.0-33.0); MEAN CORPUSCULAR HGB CONC 30.6 g/dl (32.0-36.5); PLATELET COUNT, AUTOMATED 437 10^3/uL (150-450); RED BLOOD COUNT 4.81 10^6/uL (4.30-6.10); WHITE BLOOD COUNT 10.2 10^3/uL (4.0-10.0)
[2021-09-28 06:52] LABS: ALBUMIN 3.5 GM/DL (3.2-5.2); ALT/SGPT 37 U/L (12-78); BILIRUBIN,TOTAL 0.6 MG/DL (0.2-1.0); BLOOD UREA NITROGEN 13 MG/DL (7-18); CALCIUM LEVEL 9.4 MG/DL (8.5-10.1); CARBON DIOXIDE LEVEL 28 MEQ/L (21-32); CHLORIDE LEVEL 105 MEQ/L (98-107); CREATININE FOR GFR 1.04 MG/DL (0.70-1.30); GLOMERULAR FILTRATION RATE > 60.0 (>60); GLUCOSE, FASTING 115 MG/DL (70-100); MAGNESIUM LEVEL 2.4 MG/DL (1.8-2.4); POTASSIUM SERUM 4.3 MEQ/L (3.5-5.1); SODIUM LEVEL 137 MEQ/L (136-145); TOTAL PROTEIN 6.9 GM/DL (6.4-8.2)
[2021-09-28] MEDS ORDERED: VANCOMYCIN HCL 1,000 MG, VIAL MATE ADAPTER 1 EACH in NS 250 ML IV ONE (09:00)
[2021-09-28 14:00] VITALS: BP 144/84
--- NOTE | 2021-09-28 14:08 | IPNPDOC ---
Text Note Date of Service The patient was seen on 09/28/21. NOTE SUBJECTIVE: -No acute events overnight OBJECTIVE: Vitals: see below Constitutional: NAD ENT: Sclera are clear. Mucosa is moist. Respiratory: Lungs CTA bilaterally. Breathing comfortably on room air Cardiovascular: RRR, no m/r/g Gastrointestinal: Abdomen is soft, non distended, non tender, normoactive sounds Ext: No lower extremity edema, WWP Neurologic: No focal neurological deficits. CN3-12 intact, clear speech, normal gait, full strength throughout Mental Status: A&O x3, normal affect Skin: Right-sided facial mass/collection postauricular on the jaw tender to palp ation w/ mild surrounding erythema, no purulent discharge approximately. Does have a previously noted left submandibular mobile mass nontender. LABORATORY DATA: Reviewed WBC 10.2 Hgb 10.9 platelets 437 na 137 K 4.3 Cr 1.04 IMAGING: Ct neck: Orbital cavity: The globes are intact and normal in appearance. Mastoid air cells: The mastoid air cells are well aerated. Auditory system: The middle ear spaces are clear. Paranasal sinuses: The imaged portions of the sinuses are well aerated. No air-fluid levels are noted in the sinuses. Nasal cavity: Unremarkable. Nasopharynx: Unremarkable. Oral Cavity: Unremarkable. Dental: There are dental caries involving the left upper 3rd molar. Oropharynx: Unremarkable. No enlargement of the palatine tonsils. No tonsillar or peritonsillar abscess. Hypopharynx: Unremarkable. Larynx: Unremarkable. No swelling of the epiglottis. No mass. Retropharyngeal space: Unremarkable. No retropharyngeal edema or fluid collection. Submandibular/Parotid glands: Unremarkable. Thyroid: There is a 1.5 cm heterogeneous nodule in the posterior aspect of the lower pole of the left lobe of the thyroid gland (image 64 of the axial series 201 and image 45 of the coronal series 202). Lymph nodes: No enlarged lymph nodes. Trachea: Normal as visualized. The lower trachea was not fully imaged. Lungs: The imaged lung apices are clear. The lungs were not fully imaged. Bones/joints: There is no fracture or dislocation. No suspicious osteolytic or osteoblastic lesion. There are no bony destructive changes. Vasculature: The carotid arteries and jugular veins are patent. Soft tissues: There is a 1.4 cm x 2.1 cm x 1.7 cm rim enhancing fluid collection in the subcutaneous tissues lateral to the right side of the jaw with surrounding soft tissue edema and overlying thickening of the skin (image 27 of the axial series 201 and image 30 of the coronal series 202). There are several smaller cystic lesions in the skin along both sides of the face measuring up to 8 mm with surrounding soft tissue edema (images 16, 23, and 26 of the axial series 201). There is a 2.5 cm x 3 cm x 2.5 cm oval-shaped cystic lesion in the subcutaneous tissues in the left submandibular region (image 45 of the axial series 201). IMPRESSION: 1. 1.4 cm x 2.1 cm x 1.7 cm rim enhancing fluid collection in the subcutaneous tissues lateral to the right side of the jaw with surrounding soft tissue edema and overlying thickening of the skin, which may represent an abscess with surrounding cellulitis. 2. Several smaller cystic lesions in the skin along both sides of the face measuring up to 8 mm with surrounding soft tissue edema, which may also represent abscesses. 3. 2.5 cm x 3 cm x 2.5 cm oval-shaped cystic lesion in the subcutaneous tissues in the left submandibular region. 4. 1.5 cm heterogeneous nodule in the posterior aspect of the lower pole of the left lobe of the thyroid gland. See management guidelines below. 5. Dental caries involving the left upper 3rd molar. MICROBIOLOGY: Please see below. ASSESSMENT/PLAN 41-year-old M who presented with right-sided facial swelling and admitted for right facial abscess by the jaw and associated cellulitis and left submandibular cyst warranting admission for IV antibiotics and evaluation by plastic surgery for I&D. #R facial abscess with surrounding cellulitis: rim enhancing fluid collection in the subcutaneous tissues lateral to the right side of the jaw c/w abscess - Likely abscess with surrounding cellulitis - Continue IV Unasyn for now - will give 1 dose of IV vanc, 1g, and send MRSA PCR swab - Plastics Dr Matthew consulted from the the ED, to see patient this AM for possible I&D - Pain control with Tylenol and IV morphine for severe pain # left submandibular region cyst: Fu recommendations with Dr Matthew. # Thyroid nodule: 1.5cm per radiology recommendations further evaluation with dedicated thyroid US is recommended, pending. # DVT prophylaxis: Heparin VS,Fishbone, I+O VS, Fishbone, I+O Laboratory Tests 11/2/21 21:28 09/28/21 05:46 Vital Signs Date Time Temp Pulse Resp B/P (MAP) Pulse Ox O2 Delivery O2 Flow Rate FiO2 09/28/21 06:00 98.4 63 20 144/87 (106) 98 Room Air I&O- Last 24 Hours up to 6 AM 09/28/21 06:00 Intake Total 660 ml Output Total 250 ml Balance 410 ml EDUARDO WALLACE MD Sep 28, 2021 07:53
[2021-09-28] MEDS: CEPHALEXIN 250MG CAPSULE PO SCH ×2 (15:34→18:56)
[2021-09-28] MEDS ORDERED: LIDOCAINE W/EPINEPHRINE 1% 20ML VIAL SC ONE (16:00)
[2021-09-28 22:00] VITALS: BP 176/82
[2021-09-29] MEDS: CEPHALEXIN 250MG CAPSULE PO SCH ×3 (02:24→12:23)
[2021-09-29] MEDS: HEPARIN SOD (PORCINE) 5000UNITS/ML 1ML VIAL/SYRINGE SC SCH ×2 (02:25→06:00)
[2021-09-29 06:00] VITALS: BP 142/84
[2021-09-29] MEDS ORDERED: CEPH500T PO (08:02)
[2021-09-29] MEDS ORDERED: BACITAB PO (08:02)
--- NOTE | 2021-09-29 08:07 | DS.PDOC ---
Discharge Summary General Date of Admission Sep 27, 2021 at 23:22 Date of Discharge 09/29/21 Discharge [place] [address] September 29, 2021 RE: TRENT PAUL DATE OF : 1980 MEDICAL CERTIFICATE FOR MEDICAL LEAVE OF ABSENCE To Whom it may concern: Mr. Paul was hospitalized from 09/28/21 to 09/29/21, and may return to work after discharge today without activity restrictions. If questions should arise, pls call my office at [phone]. Sincerely, Naomi Duncan MD Vital Signs/I&Os Vital Signs Date Time Temp Pulse Resp B/P (MAP) Pulse Ox O2 Delivery O2 Flow Rate FiO2 09/29/21 06:00 98.3 65 19 142/84 (103) 99 Room Air I&O- Last 24 Hours up to 6 AM 09/29/21 05:59 Intake Total 1910 ml Output Total 1050 ml Balance 860 ml Laboratory Data Labs 24H Laboratory Tests 2 09/28/21 11:01: Methicillin-Resist S.aureus DNA PCR NOT DETECTED 09/28/21 14:58: Lab Scanned Report Miscellaneous Lab Microbiology Microbiology 09/28/21 Gram Stain, Received Pending 09/28/21 Wound Culture, Received Pending Discharge Medications Scheduled Cephalexin (Cephalexin) 500 Mg Tablet, 500 MG PO QID L.acidoph/L.bulg/B.bif/S.therm (Bacid Caplet) 1 Each Tablet, 1 TAB PO [facility] Allergies Coded Allergies: No Known Allergies (Unverified , 05/15/21) NAOMI DUNCAN MD Sep 29, 2021 08:07
[2021-09-29 12:46] LABS: BASO # 0.1 10^3/uL (0.0-0.2); BASO % 0.8 % (0.0-1.0); EOS # 0.3 10^3/uL (0.0-0.5); EOS % 2.9 % (0.0-3.0); HEMATOCRIT 38.7 % (42.0-52.0); HEMOGLOBIN 11.8 g/dl (13.5-17.5); LYMPH # 2.5 10^3/uL (1.5-5.0); LYMPH % 29.2 % (24.0-44.0); MEAN CORPUSCULAR HEMOGLOBIN 22.7 pg (27.0-33.0); MEAN CORPUSCULAR HGB CONC 30.5 g/dl (32.0-36.5); MEAN CORPUSCULAR VOLUME 74.4 fl (80.0-96.0); MONO % 12.2 % (2.0-8.0); NEUTROPHILS # 4.7 10^3/uL (1.5-8.5); NEUTROPHILS % 54.5 % (36.0-66.0); PLATELET COUNT, AUTOMATED 494 10^3/uL (150-450); WHITE BLOOD COUNT 8.5 10^3/uL (4.0-10.0)
--- NOTE | 2021-09-29 13:09 | DSES ---
DISCHARGE SUMMARY DATE OF ADMISSION: 09/27/2021 DATE OF DISCHARGE: 09/29/2021 OSTEOPATHIC RESIDENT: Dr. Hanley, general surgery. PROCEDURE: Incision and drainage of the right facial abscess. PRINCIPAL DISCHARGE DIAGNOSES: 1. Right facial abscess on right side of jaw measuring 1.4 cm x 2.1 cm x 1.7 cm. 2. Right facial cellulitis. 3. Left submandibular cystic lesion 2.5 x 3 cm x 2.5 cm. 4. Incidental finding of left thyroid gland nodule 1.5 cm. DISCHARGE MEDICATIONS: - cephalexin 500 mg four times a day - Bacid one tablet with meals and at bedtime. DISCHARGE INSTRUCTIONS: 1. Patient is referred to ear, nose and throat surgeon regarding thyroid nodule and left jaw cystic mass for excision, biopsy of the thyroid nodule. 2. Right facial cellulitis, primary care physician to follow up on left facial wound culture on 09/28/2021 and to call the patient's insurance and prescription insurance to see if the patient would be improved for Dalvance 1.5 grams intravenous (IV) times one. Primary care physician appointment in five days. 3. Patient is to follow up in general surgery clinic on 09/30/2021 to remove the packing of the right face and follow up within five days with general surgery regarding the right facial abscess status post incision and drainage. HOSPITAL COURSE: This is a 41-year-old -[place] male admitted 09/27/2021 with complaints of facial swelling over the past two days. He denies any fever or chills, dysphagia or odynophagia. He was also noted to have a left-sided cystic submandibular lesion. CT of the head showed an abscess of the right face. He was started on intravenous Unasyn. Incidental finding of thyroid nodule 1.5 cm. General surgery was consulted and patient underwent incision and drainage at the bedside with wound culture pending. Patient had no fever or chills. Patient had no pain at the site. No other complaints. PHYSICAL EXAMINATION ON DISCHARGE: VITAL SIGNS: Temperature 98.3, pulse 65, respiratory rate 19, blood pressure 142/84, 99% on room air. GENERAL: Patient is awake, alert, oriented times three, answering questions appropriately. HEENT: He has a clean incision site at the right face with packing, nonpurulent, with some erythema. Left submandibular soft, mobile nodule noted, appears to be nontender on the left submandible. No thyromegaly. LUNGS: Clear to auscultation. No wheezing, rales or rhonchi. HEART: S1, S2. Sinus rhythm. ABDOMEN: Soft, nontender, nondistended. Positive bowel sounds. EXTREMITIES: No cyanosis, clubbing or pitting edema. LABORATORY DATA/MICROBIOLOGY/IMAGING STUDIES: Please see the chart. TIME SPENT ON DISCHARGE: 30 minutes. MTDD
[2021-09-29 13:30] LABS: BLOOD UREA NITROGEN 15 MG/DL (7-18); CARBON DIOXIDE LEVEL 23 MEQ/L (21-32); CHLORIDE LEVEL 103 MEQ/L (98-107); CREATININE FOR GFR 1.03 MG/DL (0.70-1.30); FREE THYROXINE INDEX 2.5 % (1.4-3.8); GLOMERULAR FILTRATION RATE > 60.0 (>60); GLUCOSE, FASTING 99 MG/DL (70-100); POTASSIUM SERUM 4.7 MEQ/L (3.5-5.1); SODIUM LEVEL 137 MEQ/L (136-145); T UPTAKE 31 % (33-40); THYROXINE (T4) 8.1 UG/DL (4.5-12.0)
[2021-09-29 14:00] VITALS: BP 145/81
--- NOTE | 2021-09-29 14:31 | REP ---
INDICATION: thyroid nodule. COMPARISON: CT soft tissue neck 09/27/2021 TECHNIQUE: Standard thyroid sonography with color imaging provided. FINDINGS: Graphic evaluation of the thyroid lobes shows the left at 5 x 1.8 x 1.4 cm in the right 4.8 x 1.3 x 1.2 cm. There are generally homogeneous but there is a hypoechoic nodule 3.5 x 3.4 x 3.1 mm medially in the interpolar lower pole junction on the left. A 1.5 cm heterogeneous nodule on CT in the left lobe is not confirmed. The isthmus has a thickness of 1.9 mm. We did not scan the submandibular mass in the left were the cutaneous/subcutaneous lesion on the right as seen on CT as only thyroid ultrasound is requested. IMPRESSION: 1. Hypoechoic 3.5 x 3.4 x 3.1 mm nodule in the posteromedial aspect lower pole junction with the interpolar region of the left thyroid lobe. I cannot confirm a 1.5 cm nodule as suggested by CT. That may be due to artifact from it immediately abutting the trachea or related to spray artifact from the clavicles on that CT. Thyroid lobes otherwise symmetric and isthmus intact. Unless symptomatic, no further follow-up necessary. <Electronically signed by Matt Hsieh > 09/29/21 [id number]
--- NOTE | 2021-09-30 09:40 | DS.PDOC ---
Discharge Summary General Date of Admission Sep 27, 2021 at 23:22 Date of Discharge 09/29/21 Discharge [place] [address] September 30, 2021 RE: TRENT PAUL DATE OF : 1980 MEDICAL CERTIFICATE FOR MEDICAL LEAVE OF ABSENCE To Whom it may concern: Mr. Paul was hospitalized from 09/28/21 to 09/29/21, and may return to work without activity restrictions on 09/30/21. If questions should arise, pls call my office at [phone]. Sincerely, Naomi Duncan MD Vital Signs/I&Os Vital Signs Date Time Temp Pulse Resp B/P (MAP) Pulse Ox O2 Delivery O2 Flow Rate FiO2 09/29/21 14:00 98.6 78 18 145/81 (102) 99 Room Air I&O- Last 24 Hours up to 6 AM 09/30/21 06:00 Intake Total 840 ml Output Total 200 ml Balance 640 ml Laboratory Data Labs 24H Laboratory Tests 2 09/29/21 11:37: Anion Gap 11, Glomerular Filtration Rate > 60.0, Calcium Level 10.0, Thyroid St imulating Hormone (TSH) 6.880H, Free Thyroxine Index 2.5, Thyroxine (T4) 8.1, Triiodothyronine (T3) Uptake 31L 09/29/21 11:41: Immature Granulocyte % (Auto) 0.4, Neutrophils (%) (Auto) 54.5, Lymphocytes (%) (Auto) 29.2, Monocytes (%) (Auto) 12.2H, Eosinophils (%) (Auto) 2.9, Basophils (%) (Auto) 0.8, Neutrophils # (Auto) 4.7, Lymphocytes # (Auto) 2.5, Monocytes # (Auto) 1.0H, Eosinophils # (Auto) 0.3, Basophils # (Auto) 0.1, Nucleated Red Blood Cells % (auto) 0.2H CBC/BMP Laboratory Tests 09/29/21 11:37 09/29/21 11:41 Microbiology Microbiology 09/28/21 Gram Stain - Final, Resulted 09/28/21 Wound Culture, Resulted Pending Discharge Medications Scheduled Cephalexin (Cephalexin) 500 Mg Tablet, 500 MG PO QID L.acidoph/L.bulg/B.bif/S.therm (Bacid Caplet) 1 Each Tablet, 1 TAB PO [facility] Allergies Coded Allergies: No Known Allergies (Unverified , 05/15/21) NAOMI DUNCAN MD Sep 30, 2021 09:40
--- NOTE | 2021-11-02 01:38 | ROOPDOC ---
[facility] Report Of Operation Report of Operation DATE OF PROCEDURE: 09/28/21 PREPROCEDURE DIAGNOSES: Right jaw abscess. POSTPROCEDURE DIAGNOSES: Right jaw abscess, induration. PROCEDURE PERFORMED: Incision and drainage of rectal abscess. SURGEON: Mike Hanley MD ANESTHESIA: Local anesthesia using 1% lidocaine containing epinephrine. ESTIMATED BLOOD LOSS: Approximately 5 mL. COMPLICATIONS: None. REMARKS: Patient is a 41-year-old male admitted through the emergency department overnight reporting a 2 to 3-day history of pain and swelling along the inferior lateral aspect of his right jaw and found to have possible abscess in the area. Initially they called plastics who was unable to see the patient and I was asked to see the patient for possible incision and drainage.. FINDINGS: Tiny purulence collection, mostly induration involving the area inferior to the lateral part of the jaw on the right side, minimal cellulitis SPECIMENS REMOVED: None DESCRIPTION OF PROCEDURE: Procedure was done at bedside. Consent is obtained from the patient after full discussion of risks and benefits of the procedure. We paused for a surgical timeout using both pre-incision safety checklist to verify correct patient, procedure site and additional clinical information prior to beginning the procedure The area on the right face and neck on his jaw area was prepped and draped in usual sterile fashion using Betadine. 1% lidocaine containing epinephrine is liberally infiltrated around the indurated area. The greatest small cruciate incision at the most fluctuant area at the center of the swelling inferior to the midportion of the right jaw area. There is only a small amount of purulent material that drained most of the swelling is made of indurated soft tissue. This was left open. Hemostasis performed with local pressure. Dry sterile dressings then placed. Patient tolerated procedure well. MIKE HANLEY MD Nov 02, 2021 01:38
== END 2021-09-29 14:38 | disposition home or self-care (01) | DRG 114 ==
LOC: M ED 16:56 → M ED INP 23:22 → ENRESERV 09-28 00:52 → M MSPAV 09-28 01:44
PROVIDERS: ADMIT Family Medicine; ATTEND General Practice
PROC: 0H91XZZ Drainage of Face Skin, External Approach (ICD-10-PCS; principal; 2021-09-28)
DX: M27.40 Unspecified cyst of jaw (principal); L02.01 Cutaneous abscess of face; E04.1 Nontoxic single thyroid nodule; F17.200 Nicotine dependence, unspecified, uncomplicated; L03.211 Cellulitis of face; K11.6 Mucocele of salivary gland

== ENCOUNTER 2021-09-30 09:17 | Outpatient (CLI) | payer OTHER ==
[~2021-09-30] VITALS: Ht 185.4 cm; Wt 113.7 kg
[~2021-09-30 09:17] MED LIST changes: +BACITAB PO; +CEPH500T PO
[2021-09-30 09:47] VITALS: BP 139/81
[2021-09-30] MEDS ORDERED: DALBAVANCIN 1,500 MG in D5W 250 ML IV ONE (10:00)
[2021-09-30 11:00] VITALS: BP 141/75
== END 2021-09-30 11:00 | disposition home or self-care (01) ==
LOC: M INFU 09:17
PROVIDERS: ATTEND General Practice
DX: L03.211 Cellulitis of face (principal)
CPT/HCPCS: 96365; J0875

== ENCOUNTER 2021-10-16 08:37 | Emergency (ER) | payer OTHER ==
[~2021-10-16] VITALS: Ht 188 cm; Wt 109.0 kg
--- OUTSIDE RECORDS SUMMARY | 2021-10-16 08:42 | CCD ---
Author Author [facility] Organization [facility] Address Unknown Phone Unavailable Care Team Providers Care Trauma Manager Name Role Phone HUA CLAYTON MD Unavailable [...] is protected by Article 27-F of the [place] State Public Health law. If you continue you may have access to information: Regarding HIV / AIDS; Provided by facilities licensed or operated by the [facility] Office of Mental Health; or Provided by the [facility] Office for People With Developmental Disabilities. If such information is present, then the following [facility] mandated warning applies: This information has [...] law may result in a fine or snf sentence or both. A general authorization for the release of medical or other information is NOT sufficient authorization for further disc losure. Encounters Encounter Providers Location Date Indications Data Source(s ) Emergency Attender: HUA CLAYTON MD [facility] 2016 09:31:00 AM EDT - 08/14/2017 11:05:00 AM EDT [facility] Medications No Information Insurance Providers Payer name Policy type / Coverage type Policy ID Covered alliance party ID Covered alliance party's relationship to [place] Policy [place] Plan Information [facility] [id number] SP [id number] [facility] MEDICAID [id number] SP [id number] J [facility] [id number] SP [id number] [facility] [id number] SP [id number] [facility] MEDICAID [id number] SP [id number] 10 [facility]ITY [facility] [id number] SP [id number] MEDICAID [id number] S [id number] SELF-PAY [id number] S [id number] SELF-PAY UNAVAILABLE S UNAVAILA BLE Problems, Conditions, and Diagnoses No Information Surgeries/Procedures No Information Results ID Date Data Source [id number] 09/27/2021 11:58:00 PM EDT [facility] Name Value Range Interpretation Code Description Data Mallory rce(s) Supporting Document(s) SARS coronavirus 2 RNA [Presence] in Res piratory specimen by SUNITHA with probe detection NEGATIVE [facility] This lab was ordered by [facility] a nd reported by [facility]. ID Date Data Source [id number] 08/20/2021 09:17:00 AM EDT [facility] Name Value Range Interpretation Code Description Data Mallory rce(s) Supporting Document(s) SARS COVID ANTIGEN NEGATIVE [facility] This lab was ordered by [facility] a nd reported by [facility]. ID Date Data Source [id number] 05/15/2021 02:05:00 PM EDT [facility] Name Value Range Interpretation Code Description Data Mallory rce(s) Supporting Document(s) SARS coronavirus 2 RNA [Presence] in Res piratory specimen by SUNITHA with probe detection NEGATIVE [facility] This lab was ordered by [facility] a nd reported by [facility]. Procedure Social History No Information
--- NOTE | 2021-10-16 09:16 | REP ---
INDICATION: pain COMPARISON: None. TECHNIQUE: AP, lateral, bilateral oblique views left foot. FINDINGS: Arthritic and posttraumatic changes at the ankle along with pes plana. No evidence for acute fracture or dislocation. IMPRESSION: No acute fracture or dislocation. <Electronically signed by Jensen Felipe > 10/16/21 0913
[2021-10-16] MEDS ORDERED: NAPR-837 PO (11:30)
[2021-10-16] MEDS ORDERED: LIDO3CRE14 TOP (11:30)
[2021-10-16 11:46] VITALS: BP 160/88
--- OUTSIDE RECORDS SUMMARY | 2021-10-16 11:49 | CCD ---
Author Author [facility] Organization [facility] Address Unknown Phone Unavailable Care Team Providers Care Electrical Electronics Engineers Name Role Phone HUA CLAYTON MD Unavailable [...] is protected by Article 27-F of the [place] State Public Health law. If you continue you may have access to information: Regarding HIV / AIDS; Provided by facilities licensed or operated by the [facility] Office of Mental Health; or Provided by the [facility] Office for People With Developmental Disabilities. If such information is present, then the following [facility] mandated warning applies: This information has been [...] law may result in a fine or fci sentence or both. A general authorization for the release of medical or other information is NOT sufficient authorization for further disc losure. Encounters Encounter Providers Location Date Indications Data Source(s ) Emergency Attender: HUA CLAYTON MD [facility] 2016 09:31:00 AM EDT - 08/14/2017 11:05:00 AM EDT [facility] Medications No Information Insurance Providers Payer name Policy type / Coverage type Policy ID Covered democrat ID Covered democrat's relationship to [place] Policy [place] Plan Information [facility] COMM[facility] [id number] SP [id number] [facility] [id number] SP [id number] J [facility] [id number] SP [id number] [facility] [id number] SP [id number] [facility] MEDICAID [id number] SP [id number] 10 [facility] [id number] SP [id number] MEDICAID [id number] S [id number] SELF-PAY [id number] S [id number] SELF-PAY UNAVAILABLE S UNAVAILA BLE Problems, Conditions, and Diagnoses No Information Surgeries/Procedures No Information Results ID Date Data Source [id number] 09/27/2021 11:58:00 PM EDT [facility] Name Value Range Interpretation Code Description Data Mallory rce(s) Supporting Document(s) SARS coronavirus 2 RNA [Presence] in Res piratory specimen by SUNITHA with probe detection NEGATIVE [facility] This lab was ordered by [facility] a nd reported by [facility]. ID Date Data Source [id number] 08/20/2021 09:17:00 AM EDT [facility] Name Value Range Interpretation Code Description Data Mallory rce(s) Supporting Document(s) SARS COVID ANTIGEN NEGATIVE [facility] This lab was ordered by [facility] a nd reported by [facility]. ID Date Data Source [id number] 05/15/2021 02:05:00 PM EDT [facility] Name Value Range Interpretation Code Description Data Mallory rce(s) Supporting Document(s) SARS coronavirus 2 RNA [Presence] in Res piratory specimen by SUNITHA with probe detection NEGATIVE [facility] This lab was ordered by [facility] a nd reported by [facility]. Procedure Social History No Information
[2021-10-16] MEDS ORDERED: ANEC4CRE3 TOP (12:25)
== END 2021-10-16 12:00 | disposition home or self-care (01) ==
LOC: M ED 08:37
DX: M79.672 Pain in left foot (principal); I10 Essential (primary) hypertension; Z79.899 Other long term (current) drug therapy

== ENCOUNTER 2021-10-18 09:06 | Emergency (ER) | payer OTHER ==
[~2021-10-18] VITALS: Ht 185.4 cm; Wt 107.1 kg
[~2021-10-18 09:06] MED LIST changes: +ANEC4CRE3 TOP; +LIDO3CRE14 TOP; +NAPR-837 PO
[2021-10-18] MEDS ORDERED: ACETAMINOPHEN 500 MG TAB PO ONE (10:40)
[2021-10-18 11:54] VITALS: BP 155/87
== END 2021-10-18 12:08 | disposition home or self-care (01) ==
LOC: M ED 09:06
DX: M72.2 Plantar fascial fibromatosis (principal)

== ENCOUNTER 2021-11-05 10:42 | Emergency (ER) | payer OTHER ==
[~2021-11-05] VITALS: Ht 185.4 cm; Wt 109.1 kg
[2021-11-05] MEDS ORDERED: IBUPROFEN 800 MG TAB PO ONE (12:30)
[2021-11-05] MEDS ORDERED: LIDOCAINE W/EPINEPHRINE 1% 20ML VIAL SC ONE (12:30)
[2021-11-05] MEDS ORDERED: BACTRIM 160MG/800MG DS TAB PO ONE (13:10)
[2021-11-05] MEDS ORDERED: BACT800T5 PO (13:15)
[2021-11-05 13:45] VITALS: BP 149/80
== END 2021-11-05 13:45 | disposition home or self-care (01) ==
LOC: M ED 10:42
DX: L02.01 Cutaneous abscess of face (principal); I10 Essential (primary) hypertension; J45.909 Unspecified asthma, uncomplicated; F17.210 Nicotine dependence, cigarettes, uncomplicated

== ENCOUNTER 2022-01-22 15:30 | Emergency (ER) | payer OTHER ==
[~2022-01-22] VITALS: Ht 185.4 cm; Wt 109.1 kg
[~2022-01-22 15:30] MED LIST changes: +BACT800T5 PO
[2022-01-22 15:40] VITALS: BP 139/72
[2022-01-22 17:29] LABS: BASO # 0.1 10^3/uL (0.0-0.2); BASO % 0.6 % (0.0-1.0); EOS # 0.2 10^3/uL (0.0-0.5); EOS % 2.5 % (0.0-3.0); HEMATOCRIT 33.6 % (42.0-52.0); HEMOGLOBIN 10.6 g/dl (13.5-17.5); LYMPH # 2.4 10^3/uL (1.5-5.0); LYMPH % 27.4 % (24.0-44.0); MEAN CORPUSCULAR HEMOGLOBIN 22.9 pg (27.0-33.0); MEAN CORPUSCULAR HGB CONC 31.5 g/dl (32.0-36.5); MEAN CORPUSCULAR VOLUME 72.6 fl (80.0-96.0); MONO # 0.9 10^3/uL (0.0-0.8); MONO % 9.7 % (2.0-8.0); NEUTROPHILS # 5.2 10^3/uL (1.5-8.5); NEUTROPHILS % 59.3 % (36.0-66.0); PLATELET COUNT, AUTOMATED 452 10^3/uL (150-450); RED BLOOD COUNT 4.63 10^6/uL (4.30-6.10); WHITE BLOOD COUNT 8.7 10^3/uL (4.0-10.0)
[2022-01-22] MEDS ORDERED: ISOVUE-370 76% 100ML VIAL As Ordered ONE (17:36)
[2022-01-22 18:09] LABS: ERYTHROCYTE SEDIMENTATION RATE 12 mm/hr (0-15)
[2022-01-22] MEDS ORDERED: DOXY-443 PO (19:22)
== END 2022-01-22 19:34 | disposition home or self-care (01) ==
LOC: M ED 15:30
DX: L02.01 Cutaneous abscess of face (principal); L03.211 Cellulitis of face; J45.909 Unspecified asthma, uncomplicated; I10 Essential (primary) hypertension; F17.290 Nicotine dependence, other tobacco product, uncomplicated; F12.20 Cannabis dependence, uncomplicated
CPT/HCPCS: 36415; 70491; 80047; 83605; 85025; 85652; 86140; 87040; 99284; Q9967